=== PATIENT | male | born 1980 | race Caucasian/White ===

== ENCOUNTER 2019-06-08 23:19 | Emergency (ER) | payer BC ==
[~2019-06-08] VITALS: Ht 188 cm; Wt 95.5 kg
[~2019-06-08 23:19] MED LIST: IBUP-1986 PO
[2019-06-08 23:25] VITALS: BP 167/5
[2019-06-09] MEDS ORDERED: CHLO473M3 PO (00:11)
[2019-06-09] MEDS ORDERED: CLIN150C2 PO (00:11)
== END 2019-06-09 01:27 | disposition home or self-care (01) ==
LOC: ER 23:20
DX: K08.89 Other specified disorders of teeth and supporting structures (principal); F17.200 Nicotine dependence, unspecified, uncomplicated; Z79.2 Long term (current) use of antibiotics; Z79.1 Long term (current) use of non-steroidal anti-inflammatories (NSAID); Z79.899 Other long term (current) drug therapy
CPT/HCPCS: 99283